=== PATIENT | male | born 1950 | race African-American/Black ===

== ENCOUNTER → 2018-04-22 | Outpatient (CLI) | payer MEDICARE, MEDICAID | END | disposition home or self-care (01) | LOC: MRI 14:53 | PROVIDERS: ATTEND Neurological Surgery | DX: M47.816 Spondylosis without myelopathy or radiculopathy, lumbar region (principal); M48.061 Spinal stenosis, lumbar region without neurogenic claudication; M51.36 Other intervertebral disc degeneration, lumbar region | CPT/HCPCS: 72148 ==

== ENCOUNTER 2018-10-16 09:58 | Emergency (ER) | payer BC, MEDICAID ==
[~2018-10-16] VITALS: Ht 188 cm; Wt 98.0 kg
[2018-10-16] MEDS ORDERED: NAPROXEN 375MG TABLET PO ONE (10:45)
[2018-10-16 11:50] VITALS: BP 123/73
== END 2018-10-16 11:50 | disposition home or self-care (01) ==
LOC: ER 09:58
DX: M54.41 Lumbago with sciatica, right side (principal); G89.29 Other chronic pain
CPT/HCPCS: 99282

== ENCOUNTER 2019-01-12 03:24 | Inpatient (IN) | payer MEDICARE, MEDICAID ==
[~2019-01-12] VITALS: Ht 188 cm; Wt 91.6 kg
[2019-01-12] MEDS ORDERED: FAMOTIDINE 20MG/2ML VIAL IV STA (04:26)
[2019-01-12] MEDS ORDERED: SODIUM CHLORIDE 0.9% 1,000 ML IV ONE (04:26)
[2019-01-12 04:49] LABS: BASOPHILS % 0.5 % (0.0-2.0); EOSINOPHILS % 0.6 % (0.0-5.0); HEMATOCRIT. 37.8 % (42.0-52.0); HEMOGLOBIN. 12.9 g/dL (14.0-18.0); LYMPHOCYTES % 12.8 % (20.0-50.0); MEAN CORPUSCULAR HEMOGLOBIN 29.6 pg (28.0-32.0); MEAN CORPUSCULAR VOLUME 86.8 fL (80.0-94.0); MEAN PLATELET VOLUME 8.6 fl (7.4-10.4); MONOCYTES % 10.1 % (2.0-8.0); PLATELET 95 x1000/uL (130-400); RED BLOOD CELL COUNT 4.36 mill/uL (4.7-6.1); RED CELL DISTRIBUTION WIDTH 14.1 % (11.6-14.6)
[2019-01-12 04:56] LABS: CHLORIDE 106 mEq/L (98-107); INR 1.1; PROTHROMBIN TIME 11.4 sec (9.6-11.0)
[2019-01-12] MEDS ORDERED: IOHEXOL-300 100 ML BOTTLE ONE (06:27)
[2019-01-12 07:19] LABS: CLARITY URINE CLEAR (CLEAR); COLOR URINE YELLOW (YELLOW); KETONES URINE 1+ (NEGATIVE); LEUKOCYTE ESTERASE URINE NEGATIVE (NEGATIVE); NITRITE URINE NEGATIVE (NEGATIVE); OCCULT BLOOD URINE TRACE (NEGATIVE); PH URINE 5.5 (4.5-8.0); PROTEIN URINE TRACE (NEGATIVE); SPECIFIC GRAVITY URINE 1.054 (1.005-1.030)
[2019-01-12 08:00] VITALS: BP 149/82
[2019-01-12] MEDS ORDERED: DOCUSATE SODIUM 250MG CAPSULE PO SCH (09:30)
[2019-01-12] MEDS ORDERED: ACETAMINOPHEN 325MG TABLET PO PRN (09:30)
[2019-01-12] MEDS ORDERED: MORPHINE SULFATE 2 MG/ML CPJ (NOT FOR IM USE) IV PRN (09:30)
[2019-01-12] MEDS ORDERED: ONDANSETRON HCL 4MG/2ML INJ IV PRN (09:30)
[2019-01-12 09:53] VITALS: BP 149/82
[2019-01-12 12:00] VITALS: BP 122/73
[2019-01-12] MEDS: MECLIZINE 25MG TABLET PO PRN (18:37)
[2019-01-12 20:00] VITALS: BP 140/78
[2019-01-13] VITALS: BP 136/74
[2019-01-13 04:00] VITALS: BP 137/80
[2019-01-13] MEDS: MECLIZINE 25MG TABLET PO PRN (05:42)
[2019-01-13] MEDS ORDERED: FAMOTIDINE 20MG/2ML VIAL IV SCH (09:00)
== END 2019-01-13 06:45 | disposition home or self-care (01) | DRG 699 ==
LOC: ER 03:24 → 6EST 07:09 → EDBEDREQ 07:11 → EDBEDREQTM 07:11 → ENRESERV 07:35
PROVIDERS: ADMIT Internal Medicine; ATTEND Internal Medicine
DX: N28.0 Ischemia and infarction of kidney (principal); E44.1 Mild protein-calorie malnutrition; K52.9 Noninfective gastroenteritis and colitis, unspecified; D64.9 Anemia, unspecified; I10 Essential (primary) hypertension; K80.20 Calculus of gallbladder without cholecystitis without obstruction; K59.00 Constipation, unspecified; Z68.25 Body mass index [BMI] 25.0-25.9, adult; Z88.8 Allergy status to other drugs, medicaments and biological substances
CPT/HCPCS: 36415; 71045; 74177; 74181; 81003; 83605; 86850; 86900; 96361; 96374; 99285; J3490; J7030; J8597; Q9967